=== PATIENT | male | born 1995 | race Caucasian/White ===

== ENCOUNTER → 2018-05-26 | Outpatient (CLI) | payer OTHER | LOC: LAB 10:14 | PROVIDERS: ATTEND Urology | DX: R30.0 Dysuria (principal); R31.29 Other microscopic hematuria | CPT/HCPCS: 36415; 81001; 82310; 82374; 82435; 82565; 82947; 84132; 84295; 84520; 87088; 87491; 87591 ==

== ENCOUNTER → 2018-06-02 | Outpatient (CLI) | payer OTHER ==
--- NOTE | 2018-06-02 15:52 | RADIOLOGY IMAGING REPORT ---
FACILITY: [facility] - [place] PATIENT NAME: Maykel Alvarez : 1995 MR: [id number] V: [id number] EXAM DATE: ORDERING PHYSICIAN: CORINNE GOEL TECHNOLOGIST: Location: [facility] Patient: Maykel Alvarez : 1995 Visit/Account:[id number] Date of Sevice: 06/02/2018 KIDNEYS EXAMINATION: Renal ultrasound. History: Dysuria microhematuria COMPARISON STUDIES: FINDINGS: Kidneys: Right kidney- 11.7 x 5.1 x 7 cm Left kidney- 10.8 x 5.3 x 5.9 cm Uniform and symmetric blood flow in each kidney by Doppler ultrasound. Hydronephrosis: none Resistive index on the right 0.48 and on the left 0.45 Bladder: Prevoid volume 98 mL. Postvoid residual 24 mL. Bilateral ureteral jets are present. Abdominal aorta and IVC: Aorta and IVC are patent by Doppler ultrasound. IMPRESSION: Kidneys appear sonographically unremarkable Post void bladder residual 24 mL. Report Dictated By: Julissa Castillo MD at 06/02/2018 3:46 PM Report E-Signed By: Julissa Castillo MD at 06/02/2018 3:48 PM WSN:[email or web address]
== END ==
LOC: CT 01:11
PROVIDERS: ATTEND Urology
DX: R30.0 Dysuria (principal); R31.29 Other microscopic hematuria
CPT/HCPCS: 76705